=== PATIENT | female | born 1950 | race Caucasian/White ===

== ENCOUNTER 2024-12-26 22:38 | Emergency (ER) | payer MEDICARE, SELFPAY ==
--- OUTSIDE RECORDS SUMMARY | 2024-12-26 22:40 | XMS_ITS | Clinical Summary ---
Author Organization [facility] Address [address] [place] [id number] Care Team Providers Care Bicycle Courier Name Role Phone Shira Holden MD Primary Care Provide r Thom Lagos MD Unavailable [phone] Trish Naranjo PharmD Unavailable [phone] Allergies Active Allergy Reactions Criticality Noted Date Comments Nickel Rash 01/08/2020 Medications bismuth subsalicylate 262 mg chewable (Pepto-BismoL) 262 mg chewable tabletIndications :Loose stools 1-2 tablets daily as needed for loose stools 0 12/18/19 22 Active amLODIPine (NORVASC) 5 mg tabletIndications :HTN (hypertension) TAKE 1 TABLET BY MOUTH ONCE DAILY 90 Tablet 3 05/08/20 24 Active calcium carbonate (Calcium 500) 500 mg calcium (1,250 mg) tabletIndications :Health care maintenance Take 1 Tablet (500 mg) by mouth once daily with a meal. 06/06/20 24 Active antiox.mv no.[id number]- ayaan (I-Caps) 280-10-2 mg capIndications:He alth care maintenance Take 1 Capsule by mouth two times daily. Or as directed on the bottle. 06/06/20 24 Active cholecalciferol (Vitamin D) 1,000 unit capsuleIndication s:Health care maintenance Take 1 Capsule (1,000 units) by mouth once daily. 06/06/20 24 Active loperamide (IMODIUM) 2 mg capsuleIndication s:Diarrhea, unspecified type Take 4mg by mouth with 1st loose stool, then 2mg with each subsequent loose stool. Max 16 mg in 24 hrs 06/06/20 24 Active atenoloL (TENORMIN) 25 mg tabletIndications :HTN (hypertension) Take 1 Tablet (25 mg) by mouth two times daily. 180 Tablet 3 06/12/20 24 Active fexofenadine (SALVADOR) 180 mg tabletIndications :Seasonal allergic rhinitis, unspecified trigger Take 180 mg by mouth once daily. Do not crush or chew. 90 Tablet 3 06/12/20 24 Active fluticasone propion-salmetero L (ADVAIR) 250-50 mcg/Dose diskus inhalerIndication s:Chronic cough USE 1 INHALATION BY MOUTH TWICE DAILY 60 Each 11 07/04/20 24 Active thyroid (Bandera Thyroid) 90 mg tabletIndications :Hypothyroidism, unspecified type TAKE 1 TABLET (90 MG) BY MOUTH ONCE DAILY. 90 Tablet 2 08/18/19 25 Active amoxicillin-clavu lanate 875-125 mg tabletIndications :Acute pansinusitis, recurrence not specified Take 1 Tablet by mouth two times daily with meals. 20 Tablet 11/16/19 25 Active fluticasone (50 mcg per actuation) nasal solution (FLONASE)Indicati ons:Other chronic sinusitis Inhale 2 Sprays in both nostrils once daily. 16 g 3 11/16/19 25 Active apixaban (Eliquis) 5 mg tabletIndications :Atrial fibrillation, unspecified type (HC) TAKE 1 TABLET BY MOUTH TWICE DAILY 200 Tablet 3 11/27/19 25 Active predniSONE 10 mg tabletIndications :Chronic maxillary sinusitis 30mg by mouth daily for 6 days, then 20mg by mouth daily for 6 days, then 10mg by mouth daily for 2 days 32 Tablet 11/29/19 25 Active doxycycline 100 mg tabletIndications :Recurrent sinus infections,Chroni c maxillary sinusitis Take 1 Tablet (100 mg) by mouth two times daily before meals. 28 Tablet 11/29/19 25 Active olopatadine 0.1 % ophthalmic solutionIndicatio ns:Allergic conjunctivitis, unspecified laterality Place 1 Drop into both eyes two times daily. 15 mL 12/19/19 25 Active fluconazole 100 mg tabletIndications :Laryngitis Take 1 Tablet (100 mg) by mouth once daily for 14 days. 14 Tablet 12/21/19 25 025 Active olopatadine (PATANOL) 0.1 % ophthalmic solutionIndicatio ns:Allergic conjunctivitis, unspecified laterality INSTILL 1 DROP IN BOTH EYES TWICE DAILY 15 mL 12/08/19 24 025 Discontin ued(Reord er (E-cancel not sent)) Active Problems Problem Noted Date Diagnosed Date Paroxysmal SVT (supraventricular tachycardia) Vestibular neuritis 07/28/2021 Family history of colon cancer 12/16/2017 Overview (04/12/2023): Colonoscopy 11/2017 long colon, repeat in 5 years with an adult scope Colonoscopy 04/2023 long colon, repeat in 5 years with an adult scope, colowrap H/O total hip arthroplasty, right 11/24/2017 History of total right knee replacement 03/01/20 17 HTN (hypertension) 06/12/2015 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 10/21/2008 Microscopic colitis 07/09/2008 Overview (08/16/2012): Colonoscopy 08/2012 lymphocytic colitis repeat in 5 years 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 Diarrhea 02/08/2008 Postmenopausal atrophic vaginitis 12/06/2006 Unspecified hypothyroidism 11/22/2006 Resolved Problems Problem Noted Date Diagnosed Date Resolved Date Anticoagulation monitoring, special range 02/18/2017 03/16/2017 S/P right knee surgery 02/18/201711/24 Adhesive capsulitis of shoulder 10/21/2008 11/24/2017 Ovarian cyst 05/17/2008 11/24/2017 Unspecified essential hypertension 11/22/2006 06/12/2015 Encounters Date Type Department Care Team Description 12/20/2024 10:00 AM CDT Office Visit [address] [place] [phone] Pedrito Guerrero-Bg Block MD Consult (Chronic maxillary sinusitis /Recurrent sinus infections /Vocal cord edema ) 12/20/2024 Travel 12/15/2024 Travel 11/28/2024 11:00 AM CDT [address] [place] [address] Lisa Dumont PA Consult (Sinus concerns and laryngitis) 11/27/2024 Travel 11/23/2024 9:30 AM CDT Office Visit [facility] [address] [place] [address] Anna Hodges MD Follow Up 11/23/2024 Travel 11/21/2024 Refill [facility] [address] [place] [address] Shira Holden MD Refill Request (Eliquis) 11/21/2024 Travel 11/16/2024 10:00 AM CDT Orders Only [facility] [address] [place] [address] 1 scan: (1-Ord) ECHO TTE COMPLETE WO CONTRAST ([id number]) 11/15/2024 3:30 PM CDT Office Visit [facility] [address] [place] [address] Shira Holden MD Sinus Problem (CT done. Does not feel bad. Throat sore and scratchy ) 11/15/2024 2:30 PM CDT Ancillary Procedure [facility] [address] [place] [address] 11/15/2024 Travel 11/05/2024 E-Visit [address] [address] Shira Holden MD Sinuses again? from Last 3 Months Immunizations Immunization Administration Dates Next Due AMB Influenza, IIV3 (Age >=3 years)(Flu Clinic Only) 06/17/2011,05/06/2009,05/24/2008 Amb Influenza, Inactivated A IIV4 (Age 65+ Years) Preserv Free 05/21/2020 COVID-19 vaccine (Pfizer-Bio NTech 30mcg/0.3mL) 12YO+ SERGEY-SUCROSE PF, MDV 12/17/2021 COVID-19 vaccine (Pfizer-Bio NTech 30mcg/0.3mL) PF, MDV 11/08/2020,10/18/2020 DT (Age < 7 years) 10/19/1999 Influenza A (H1N1), Inactivated 08/18/2009 Influenza A (H1N1), Inactiva ambrocio (Age >=3 Years) 08/18/2009 Influenza, High-dose Quadriv alent Inactivated 05/10/2023,05/06/2022 Influenza, IIV3 (Age 6-35 mos) 06/17/2011 Influenza, IIV3 (Age >=3 years) 06/14/20 13,07/04/2012,06/02/2010,06/13,06/11/2006,06/16/2005,05/14/2004 Influenza, IIV4 05/25/2016, 5,07/11/2014,08/18 Influenza, Inactivated AIIV4 (Age 65+ Years) Preserv Free 06/02/2021 Influenza, Inactivated IIV3 (Age 65+ Years) Preserv Free 04/27/2024,06/13/2019,06/02/2018,07/15 Pneumococcal Poly,23-Valent (Pneumovax) 07/15/2017,06/25/2003 Pneumococcal conj 13-Valent (Prevnar 13) 05/25/2016 RSV, Recombinant ADJ Reconst ituted (Arexvy 120MCG/0.5mL) 09/08/2023 Tdap 04/05/2019,05/29/2009 Tuberculin (PPD) 12/08/2012 Zoster (Shingrix-RZV, recombinant) 02/27/2019, Zoster (Zostavax-ZVL, live) 08/08/2012 Family History Medical History Relation Name Comments Cancer-prostate Father Yan Suazo Thyroid Disease Father Yan Suazo Cancer-breast Maternal Aunt 1 Hypertension Maternal Grandmother Cancer-colon Mother Angela Suazo age 75 Hypertension Mother Angela Suazo Cancer Paternal Grandmother Pancrea tic Cancer Cancer-ovarian No Family History Relation Name Status Comments Brother Wei Suazo Alive Daughter Bryanna Costa Alive Father Yan Suazo Alive Maternal Aunt 1 Maternal Aunt 2 Maternal Grandfather (Age 83) Maternal Grandmother (Age 86) Mother Angela Suazo Alive Other Paternal Grandfather (Age 85) Paternal Grandmother (Age 65) Sister 1 Naye Gardiner Alive Sister 2 Holli Franklin Alive Sister 3 Portia Suazo Alive Son Navi Costa Alive Social History Tobacco Use Types Packs/Day Years Used Date Smoking Tobacco: Never Smokeless Tobacco: Never Tobacco Cessation:Counseling Given: Yes Alcohol Use Standard Drinks/Week Comments Yes 4 (1 standard drink = 0.6 oz pur e alcohol) 4-6 drinks per week PHQ-2 Answer Date Recorded PHQ-2 TOTAL SCORE 0 06/12/2024 Social Connections Answer Date Recorded Do you often feel lonely or isolated from those around you? 0 06/12/2024 Financial Resource Strain Answer Date R ecorded Difficulty of Paying Living Expenses 3 06/12/2024 Difficulty of Paying Living Expenses Not on file 06/12/2024 Food Insecurity Answer Date Recorded Do you worry your food will run out before you are able to buy more? 1 06/12/2024 Transportation Needs Answer Date Record ed Does lack of transportation keep you from medica l appointments? 1 06/12/2024 Does lack of transportation keep you from work, meetings or getting things that you need? 1 06/12/2024 Housing Stability Answer Date Recorded What is your housing situation today? 1 06/12/2024 Utilities Answer Date Recorded Do you have trouble paying f or utilities (for example, heat, electricity, water, phone)? 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 Not on file Not on file Not on file Obstetrics History Para Term AB IAB SAB Ectopic Multiple Livin g Live Births 2 2 2 2 Date Outcome GA Total Labor Labor/2nd/3rd Weight Sex Type Anes PTL Perlita A1 A5 Name Clin Term Term Last Filed Vital Signs Vital Sign Reading Time Taken Comments Blood Pressure 158/86 11/23/2024 9:27 AM CDT Pulse 69 11/23/2024 9:27 AM CDT Temperature 36.8 C (98.3 F) 11/03/2021 9:13 AM CDT Respiratory Rate 14 04/12/2023 11:0 0 AM CDT Oxygen Saturation 99% 11/23/2024 9:27 AM CDT Inhaled Oxygen Concentration - - Weight 76.1 kg (167 lb 11.2 oz) 11/23/2024 9:27 AM CDT Height 163.2 cm (5' 4.25) 06/12/2024 1:17 PM CS T Body Mass Index 28.56 06/12/2024 1:17 PM SPOT FACER Plan of Treatment Health Maintenance Due Date Last Done Comments COVID-19 vaccine series ( season) 2024 04/27/2024, 05/10/2023, 04/30/2022, Additional history exists BMI (ht and wt on same day) for age 18+ 06/12/2025 06/12/2024, 06/07/2023, 06/03/2022, Additional history exists Depression screening for age 12+ 06/12/2025 06/12/2024, 06/07/2023, 06/03/2022, Additional history exists Medicare Wellness for age 65+ 06/13/2025 06/12/2024, 06/07/2023, 06/03/2022, Additional history exists Mammogram for age 45-75 07/16/2025 07/16/20 24, 07/13/2023, 07/01/2022, Additional history exists Colonoscopy through age 75 04/12/202804/12, 04/12/2023, 12/16/2017, Additional history exists Tetanus booster 04/05/2029 04/05/2019, 05/29/2009 Lipids for age 45-75 06/12/2029 06/12/2024, 06/07/2023, 05/31/2022, Additional history exists Pneumococcal series for age 50+ Completed 07/15/2017, 05/25/2016, 06/25/2003 DEXA/DXA scan for age 65+ Completed 02/16/2018 Hepatitis C screening for age 18-79 Completed 06/02/2018, 07/15/2017 Zoster (shingles) series for age 50+ Completed 02/27/2019, 12/15/2018, 08/08/2012 Tdap Completed 04/05/2019, 05/29/2009 RSV vaccine for adults or Completed 09/08/2023 Influenza Vaccine Completed 04/27/2024, , 05/21/2020, Additional history exists Hepatitis B series for 19+ Aged Out N o longer eligible based on patient's age to complete this topic Goals Goal Patient Goal Type Associated Problems Recent Progress Patient-Stated? Author BLOOD PRESSURE - Maintains BP less than 140/90 Blood Pressure No Elizabeth Barber LPN Procedures Procedure Name Priority Date/Time Associated Diagnosis Comments ECHO TTE COMPLETE WO CONTRAST Routine 11/16/2024 11:34 AM CDT Atrial fibrillation, unspecified type (HC) CT SINUS WO STAT 11/15/2024 2:34 PM CDT Other chronic sinusitis XR MAMMO JOSEY BILAT SCREEN Routine 07/16/2024 1:09 PM SPOT FACER Visit for screening mammogram LIPID PANEL W REFLEX MEASURED LDL Routine 06/12/2024 2:32 PM SPOT FACER Lipid screening COLONOSCOPY 04/12/2023 10:07 AM CDT ANTI HCV Routine 06/02/2018 10:28 AM CDT Encounter for hepatitis C screening test for low risk patient XR DXA BONE DENSITY 2 SITES AXIAL Routine 02/16/2018 9:48 AM CDT Asymptomatic postmenopausal state from Last 3 Months or Most Recently Relevant to Health Maintenance Results * ECHO TTE COMPLETE WO CONTRAST (11/16/2024 11:34 AM CDT) AORTIC VALVE MEAN PG 6 mmHg EJECTION FRACTION 66 % LVEDD 3.9 cm EJECTION FRACTION 60 - 65% Anatomical Region Laterality Modality Ultrasound 11/16/2024 10:2 9 AM CDT Narrative 11/16/2024 11:57 AM CDT ECHOCARDIOGRAM ROSEANN PEÑA : 1950 74 years Study Date: 11/16/2024 10:29:38 AM Gender: F BP: 149/82 mmHg Height: 165.00 cm BSA: 1.82 m Weight: 75.00 kg Tech: ROBERTA Referring MD: ANNA HODGES Site: [facility] Reading Location: Mobile-OP Patient Location: Outpatient. Procedure: 2D, Color Doppler and Spectral Doppler. Indication for study: Atrial fibrillation, unspecified type (HC Cardiac Rhythm: Regular.Study quality: Good. Imaging limitations: This study was subject to imaging limitations due to Dextrocardia. Final Impressions: 1. Normal LV size, mildly increased wall thickness, normal global systolic function with an estimated EF of 60 - 65%. 2. Right ventricular cavity size is normal, global systolic RV function is normal. 3. Mildly enlarged left atrium. 4. The aortic valve is normal and trileaflet, no stenosis and mild regurgitation. 5. The mitral valve is sclerotic, mild mitral regurgitation. 6. Tricuspid valve is normal, trace tricuspid regurgitation. 7. Color Doppler suggests a possible PFO. 8. Dilated sinus of Valsalva, diameter of 4.1 cm (upper limit of normal for age, sex, and BSA is 3.7 cm), Height Index 2.48 cm/m. 9. Small pericardial effusion. Chamber Sizes and Function Normal left ventricular size, mildly increased wall thickness, normal global systolic function with an estimated EF of 60 - 65%. No resting regional wall motion abnormality visualized. Left atrial size is mildly enlarged. Left atrial pressure is normal. Right ventricular cavity size is normal, global systolic RV function is normal. RV wall thickness is normal. The right atrium is mildly enlarged. Right atrial volume index is 29 ml/m . Right atrial area is 18 cm . The pulmonary artery is of normal size and origin. The sinus of Valsalva is dilated. The ascending aorta is normal sized. Valves, RV Pressures and Diastolic Function The aortic valve is normal in structure and trileaflet, no stenosis and mild regurgitation. The mitral valve is sclerotic, mild mitral regurgitation. Spectral Doppler shows Grade 1 pattern of LV diastolic filling. The tricuspid valve is normal in structure, trace tricuspid regurgitation. The pulmonic valve is normal. No pulmonary regurgitation. Masses, Effusion, Shunts There is small pericardial effusion. The inferior vena cava is normal sized, respiratory size variation greater than 50%. Color flow Doppler imaging suggests a possible PFO. MEASUREMENTS AND CALCULATIONS 2-D Measurements and LV Function: LVID (d) 3.9 cm LV FS% (2D) 43 % LVID (s) 2.2 cm LVOT diameter 2.2 cm IVS (d) 1.2 cm HR 65 bpm LVPW (d) 1.2 cm LA Vol index 39 ml/m2 Ao Sinus 4.1 cm RA Vol index 29 ml/m2 Ao Sinus ULN 3.7 cm RA area 18 cm Asc Ao 3.7 cm RV Basal Diam 3.9 cm Asc Ao ULN 4.0 cm RV Mid Diam 2.7 cm LA 3.5 cm Diastology: Mitral Tissue Doppler E Peak 0.7 m/s e', Septum 0.04 m/s A Peak 1.0 m/s e', Lateral 0.05 m/s E/A 0.7 E/e' Average 15.61 DT 196 msec Aortic Valve: Vmax 1.6 m/s DAVID (V) 2.56 cm VTI 0.31 m DAVID (I) 2.88 cm LVOT V max 1.1 m/s Max PG 11 mmHg LVOT VTI 0.23 m Mean PG 6 mmHg SV 89 ml Dim Index 0.74 SV index 49 ml/m CO 5.8 l/min AV Ejection Time 0.28 sec CI 3.2 l/min/m AV Flow Rate 319 ml/s Mitral Valve: MVA 3.9 cm MV P 1/2 57 msec Tricuspid Valve and estimated PA pressures: TAPSE 1.9 cm . This study was interpreted by an [facility] accredited facility. Final Procedure Note Jennifer Richards, [facility] - 11/16/2024 ECHOCARDIOGRAM ROSEANN PEÑA : 1950 74 years Study Date: 11/16/2024 10:29:38 AM Gender: F BP: 149/82 mmHg Height: 165.00 cm BSA: 1.82 m Weight: 75.00 kg Tech: ROBERTA Referring MD: ANNA HODGES Site: [facility] Reading Location: Mobile-OP Patient Location: Outpatient. Procedure: 2D, Color Doppler and Spectral Doppler. Indication for study: Atrial fibrillation, unspecified type (HC Cardiac Rhythm: Regular.Study quality: Good. Imaging limitations: This study was subject to imaging limitations due toDextrocardia. Final Impressions: 1. Normal LV size, mildly increased wall thickness, normal globalsystolic function with an estimated EF of 60 - 65%. 2. Right ventricular cavity size is normal, global systolic RV functionis normal. 3. Mildly enlarged left atrium. 4. The aortic valve is normal and trileaflet, no stenosis and mildregurgitation. 5. The mitral valve is sclerotic, mild mitral regurgitation. 6. Tricuspid valve is normal, trace tricuspid regurgitation. 7. Color Doppler suggests a possible PFO. 8. Dilated sinus of Valsalva, diameter of 4.1 cm (upper limit of normalfor age, sex, and BSA is 3.7 cm), Height Index 2.48 cm/m. 9. Small pericardial effusion. Chamber Sizes and Function Normal left ventricular size, mildly increased wall thickness, normalglobal systolic function with an estimated EF of 60 - 65%. No restingregional wall motion abnormality visualized. Left atrial size is mildlyenlarged. Left atrial pressure is normal. Right ventricular cavity size isnormal, global systolic RV function is normal. RV wall thickness isnormal. The right atrium is mildly enlarged. Right atrial volume index is29 ml/m . Right atrial area is 18 cm . The pulmonary artery is of normalsize and origin. The sinus of Valsalva is dilated. The ascending aorta isnormal sized. Valves, RV Pressures and Diastolic Function The aortic valve is normal in structure and trileaflet, no stenosis andmild regurgitation. The mitral valve is sclerotic, mild mitralregurgitation. Spectral Doppler shows Grade 1 pattern of LV diastolicfilling. The tricuspid valve is normal in structure, trace tricuspidregurgitation. The pulmonic valve is normal. No pulmonary regurgitation. Masses, Effusion, Shunts There is small pericardial effusion. The inferior vena cava is normalsized, respiratory size variation greater than 50%. Color flow Dopplerimaging suggests a possible PFO. MEASUREMENTS AND CALCULATIONS 2-D Measurements and LV Function: LVID (d) 3.9 cm LV FS% (2D) 43 % LVID (s) 2.2 cm LVOT diameter 2.2 cm IVS (d) 1.2 cm HR 65 bpm LVPW (d) 1.2 cm LA Vol index 39 ml/m2 Ao Sinus 4.1 cm RA Vol index 29 ml/m2 Ao Sinus ULN 3.7 cm RA area 18 cm Asc Ao 3.7 cm RV Basal Diam 3.9 cm Asc Ao ULN 4.0 cm RV Mid Diam 2.7 cm LA 3.5 cm Diastology: Mitral Tissue Doppler E Peak 0.7 m/s e', Septum 0.04 m/s A Peak 1.0 m/s e', Lateral 0.05 m/s E/A 0.7 E/e' Average 15.61 DT 196 msec Aortic Valve: Vmax 1.6 m/s DAVID (V) 2.56 cm VTI 0.31 m DAVID (I) 2.88 cm LVOT V max 1.1 m/s Max PG 11 mmHg LVOT VTI 0.23 m Mean PG 6 mmHg SV 89 ml Dim Index 0.74 SV index 49 ml/m CO 5.8 l/min AV Ejection Time 0.28 sec CI 3.2 l/min/m AV Flow Rate 319 ml/s Mitral Valve: MVA 3.9 cm MV P 1/2 57 msec Tricuspid Valve and estimated PA pressures: TAPSE 1.9 cm . This study was interpreted by an [facility] accredited facility. Final [facility] Eldon Hodges MD ECHO ORD Final Result * CT SINUS WO (11/15/2024 2:34 PM CDT) Anatomical Region Laterality Modality SINUS Computed Tomogra phy 11/15/2024 2:43 PM CDT Addenda Addendum by Thom Tse MD on 11/18/2024 9:11 AM CDT Indication: Chronic sinus disease. Technique: Routine sinus CT protocol without contrast Comparison: None Findings: Paranasal sinuses: Near complete opacification of both maxillary sinuses the hypoplastic frontal and hypoplastic sphenoid sinuses. Moderate multifocal mucosal thickening involving most ethmoid air cells. OMU and SER: Patent. Nasal cavity: No nasal mass lesions. Mild deviation nasal septum to the right. No septal spur. Bones: No facial fractures, deformities or bony lesions. 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 Orbits: The globes are intact. No intra orbital abnormalities. Infratemporal fossa: Normal. Soft tissues: Normal. Intracranial contents: Normal visualized intracranial contents. Impression: 1. Near complete opacification of both maxillary sinuses in the hypoplastic frontal and hypoplastic sphenoid sinuses. Moderate scattered mucosal thickening or obstruction of the ethmoid air cells. 2. No OMU, SER or nasal obstruction. 3. Small fat containing bilateral inguinal hernias with a trace of fluid in the larger left sac. Please note that all CT scans at this facility use dose modulation, iterative reconstruction, and/or weight-based dosing when appropriate to reduce radiation dose to as low as reasonably achievable. Dictated by Thom Tse MD @ 11/15/2024 2:43:22 PM ----- ADDENDUM ----- IMPRESSION: #3 Impression is a cut and paste body make up artist error. 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 Dictated by Thom Tse MD @ Nov 18 2024 9:09AM (Electronically Signed) Narrative 11/15/2024 2:43 PM CDT For Patients: As a result of the Cures Act, medical imaging exams and procedure reports are released immediately into your electronic medical record. You may view this report before your referring provider. If you have questions, please contact your health care provider. Indication: Chronic sinus disease. Technique: Routine sinus CT protocol without contrast Comparison: None Findings: Paranasal sinuses: Near complete opacification of both maxillary sinuses the hypoplastic frontal and hypoplastic sphenoid sinuses. Moderate multifocal mucosal thickening involving most ethmoid air cells. OMU and SER: Patent. Nasal cavity: No nasal mass lesions. Mild deviation nasal septum to the right. No septal spur. Bones: No facial fractures, deformities or bony lesions. 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 Orbits: The globes are intact. No intra orbital abnormalities. Infratemporal fossa: Normal. Soft tissues: Normal. Intracranial contents: Normal visualized intracranial contents. Impression: 1. Near complete opacification of both maxillary sinuses in the hypoplastic frontal and hypoplastic sphenoid sinuses. Moderate scattered mucosal thickening or obstruction of the ethmoid air cells. 2. No OMU, SER or nasal obstruction. 3. Small fat containing bilateral inguinal hernias with a trace of fluid in the larger left sac. Please note that all CT scans at this facility use dose modulation, iterative reconstruction, and/or weight-based dosing when appropriate to reduce radiation dose to as low as reasonably achievable. Dictated by Thom Tse MD @ 11/15/2024 2:43:22 PM (Electronically Signed) Procedure Note Thom Tse MD - 11/15/2024 For Patients: As a result of the Cures Act, medical imagingexams and procedure reports are released immediately into your electronicmedical record. You may view this report before your referring provider.If you have questions, please contact your health care provider. Indication: Chronic sinus disease. Technique: Routine sinus CT protocol without contrast Comparison: None Findings: Paranasal sinuses: Near complete opacification of both maxillary sinuses the hypoplasticfrontal and hypoplastic sphenoid sinuses. Moderate multifocal mucosalthickening involving most ethmoid air cells. OMU and SER: Patent. Nasal cavity: No nasal mass lesions. Mild deviation nasal septum to theright. No septal spur. Bones: No facial fractures, deformities or bony lesions. 3.5 millimeterright middle ethmoid sinus osteoma. Orbits: The globes are intact. No intra orbital abnormalities. Infratemporal fossa: Normal. Soft tissues: Normal. Intracranial contents: Normal visualized intracranial contents. Impression: 1. Near complete opacification of both maxillary sinuses in thehypoplastic frontal and hypoplastic sphenoid sinuses. Moderate scatteredmucosal thickening or obstruction of the ethmoid air cells. 2. No OMU, SER or nasal obstruction. 3. Small fat containing bilateral inguinal hernias with a trace of fluidin the larger left sac. Please note that all CT scans at this facility use dose modulation,iterative reconstruction, and/or weight-based dosing when appropriate toreduce radiation dose to as low as reasonably achievable. Dictated by Thom Tse MD @ 11/15/2024 2:43:22 PM (Electronically Signed) us Shira Holden MD CT Edite d Result - Final * XR MAMMO JOSEY BILAT SCREEN (07/16/2024 1:09 PM SPOT FACER) Anatomical Region Laterality Modality BREASTS, Breast Left, Breast Right Bilateral Mammography Impressions 07/16/2024 2:28 PM SPOT FACER There is no radiographic evidence for malignancy. Recommend annual mammograms. MAMMOGRAM ASSESSMENT: ACR 1 Negative PATIENTS: You will also receive a letter with your examination results in an easy to read format. If you have questions about your results, please contact your referring provider. Narrative 07/16/2024 2:28 PM SPOT FACER For Patients: As a result of the Century Cures Act, medical imaging exams and procedure reports are released immediately into your electronic medical record. You may view this report before your referring provider. If you have questions, please contact your health care provider. XR MAMMO JOSEY BILAT SCREEN [[id number]] CLINICAL HISTORY: This is an asymptomatic 74 y.o. patient. INDICATION FOR EXAM: Mammogram Screening. TECHNIQUE: CC & MLO views were obtained. This study was evaluated with the assistance of Computer-Aided Detection. Breast Tomosynthesis was used in interpretation. COMPARISON FILM: Yes 07/13/23 [facility] 07/01/22 [facility] FINDINGS: There are scattered areas of fibroglandular density. There are no dominant masses, suspicious micro calcifications or areas of architectural distortion. us Shira Holden MD MAMMO Final Result * (ABNORMAL) LIPID PANEL W REFLEX MEASURED LDL (06/12/2024 2:32 PM SPOT FACER) CHOLESTEROL, TOTAL 179 <200 mg/dL [facility] HDL CHOLESTEROL 61 > OR = 50 mg/dL [facility] TRIGLYCERIDES 173(H) <150 mg/dL [facility] LDL-CHOLESTEROL 91 mg/dL (calc) [facility] Comment: Reference range: <100 Desirable range <100 mg/dL for primary prevention; <70 mg/dL for patients with CHD or diabetic patients with > or = 2 CHD risk factors. LDL-C is now calculated using the Jose Antonio calculation, which is a validated novel method providing better accuracy than the Friedewald equation in the estimation of LDL-C. Reece SS et al. JONATHAN. 2013;310(19): 6264-7578 (http://education.DataOceans/faq/BTE757) CHOL/HDLC RATIO 2.9 <5.0 (calc) [facility] NON HDL CHOLESTEROL 118 <130 mg/dL (calc) [facility] Comment: For patients with diabetes plus 1 major ASCVD risk factor, treating to a non-HDL-C goal of <100 mg/dL (LDL-C of <70 mg/dL) is considered a therapeutic option. Blood BLOOD SPECIMEN / Unknown 06/12/2024 2:32 PM SPOT FACER 06/12/2024 2:32 PM SPOT FACER us Shira Holden MD CHEMISTRY Final Result [facility] [address] [place] [address], [facility] [address] [place] [address] * COLONOSCOPY (04/12/2023 10:07 AM CDT) 04/12/2023 10:0 7 AM CDT Narrative Transcriptions Reece Gleason MD - 04/12/2023 10:48 AM CDT Patient Name: Roseann Peña Procedure Date: 04/12/2023 Gender: Female Date of : 1950 Admit Type: Outpatient Procedure: Colonoscopy Proceduralist: Reece Gleasno MD , Yvrose Mckay RN (Nurse), Pauline Moerno (Nurse) Indications/Pre-Op Diagnosis: Screening in patient at increased risk:Family history of 1st-degree relative withcolorectal cancer before age 60 years, Lastcolonoscopy: November 2017 Medications: Fentanyl 100 micrograms IV, Midazolam 3 mgIV, The level of sedation administered wasmoderate Procedure Description: The patient had risks, benefits and alternatives explained to andgave informed consent. The patient had a stable cardiopulmonary status and judged an adequate candidate for conscious sedation. The endoscope [id number] was passed through the anus andadvanced to the cecum, identified by appendiceal orifice and ileocecal valve.The colonoscopy was performed without difficulty. The patient toleratedthe procedure well. The quality of the bowel preparation was good. The ileocecal valve, appendiceal orifice, and rectum were photographed. Complications: No immediate complications. Estimated Blood Loss & Specimen: Estimated blood loss: none. Specimen collected - None Findings: The perianal and digital rectal examinations were normal. The colon (entire examined portion) was significantly redundant. The exam was otherwise without abnormality. Impressions/Post-Op Diagnosis: - Redundant colon. - The examination was otherwise normal. - No specimens collected. Recommendation: - Patient has a contact number available for emergencies. The signsand symptoms of potential delayed complications were discussed with the patient. Return to normal activities tomorrow. Written discharge instructions were provided to the patient. - Resume previous diet. - Continue present medications. - Repeat colonoscopy in 5 years for screening purposes. Use acolowrap if possible. Moderate Sedation: A time out was performed before the procedure. Moderate (conscious) sedation was administered by the endoscopy nurse and supervised bythe endoscopist. The following parameters were monitored: oxygensaturation, heart rate, blood pressure, EKG, CO2, respiratory rate, adequacy of pulmonary ventilation and reponse to care. Please refer to the patient's medical record flowsheets and nursing notes for moderate sedation details. Total physician intraservice time was 21 minutes. Reece Gleason MD 04/12/2023 10:48:41 AM This report has been signed electronically. Note Initiated On: 04/12/2023 10:07 AM Procedure Code(s): --- Professional --- 74836, Colonoscopy, flexible; diagnostic, including collection of specimen(s) bybrushing or washing, when performed (separateprocedure) Diagnosis Code(s): --- Professional --- Z80.0, Family history of malignant neoplasmof digestive organs Q43.8, Other specified congenitalmalformations of intestine CPT copyright 2021 [employer]. All rights reserved. The codes documented in this report are preliminary and upon application systems administrator reviewmay be revised to meet current compliance requirements. Scope In: 10:23:01 AM Scope Withdrawal Time 0 hours 6 minutes 12 seconds Scope Out: 10:42:00 AM Reece Gleason MD PROCEDURE ORD Final Res ult * ANTI HCV (06/02/2018 10:28 AM CDT) HEPATITIS C ANTIBODY Non-React marvin Non-React marvin 06/02/2018 4:48 PM CDT [facility] Comment:Antibodies to HCV no t detected; does not exclude the possibility of exposure to HCV. Blood BLOOD SPECIMEN / Unknown Butterfly / Unknown 06/02/2018 10:28 AM CDT 06/02/2018 10:28 AM CDT Shira Holden MD SEND OUTS Final Result [facility] [address] [place] [address], * (ABNORMAL) XR DXA BONE DENSITY 2 SITES AXIAL (02/16/2018 9:48 AM CDT) Anatomical Region Laterality Modality Spine, HIPS, HIPL, HIPR Other Narrative 02/21/2018 8:00 AM CDT Please see scanned document for results of this study. Shira Holden MD DEXA Final Result from Last 3 Months or Most Recently Relevant to Health Maintenance Insurance MEDICARE PART A HB ONLY [facility] Care Teams Bicycle Courier Relationship Specialty Start Date End Date Shira Holden MD [address] [place] [address] PCP - General 02/02/06 Thom Lagos MD [address] [place] [address] Orthopedics Surgery - Orthopedics 12/20/13 Trish Naranjo PharmD [address] [place] [address] [place] [address] Pharmacist Medication Management Pharmacology 06/06/24 06/06/27
[2024-12-26 22:47] VITALS: BP 175/96; PULSE 82; RESP 16; TEMP 36.8; O2SAT 96; BMI 27.8
--- NOTE | 2024-12-26 23:12 | ED.GENADULT ---
HPI - General Adult General Chief complaint: Lower Extremity Swelling Stated complaint: swollen ankle L side Time Seen by Provider: 12/26/24 23:03 History of Present Illness HPI narrative: Arrives with atraumatic swelling to her left ankle that started yesterday. States the back of her ankle is painful as well. Alert and oriented, ABCs intact. 74-year-old woman presenting to the emergency department with concern of swelling about her left ankle beginning yesterday. It is sore behind her ankle as well. No significant injury and no marked pain to suggest bony abnormality perhaps. Does have a history of hardware in her left ankle but does not typically swell. Small purple spot papule superior and medial to the medial malleolus that she thinks may have been from a bite sustained yesterday maybe an insect. Iced and elevated last night Apparently was recommended to be seen with I believe concern of DVT. She is also planning a flight shortly. Related Data Home Medications ?Medication ?Instructions ?Recorded ?Confirmed amlodipine 5 mg tablet 5 mg PO DAILY 12/26/24 12/26/24 apixaban 5 mg tablet (Eliquis) 5 mg PO BID 12/26/24 12/26/24 atenolol 25 mg tablet 25 mg PO BID 12/26/24 12/26/24 fluconazole 100 mg tablet 100 mg PO DAILY 12/26/24 12/26/24 thyroid (pork) 90 mg tablet 90 mg PO DAILY 12/26/24 12/26/24 ([place] Thyroid) Previous Rx's ?Medication ?Instructions ?Recorded cephalexin 500 mg capsule 2,000 mg (4 x 500 mg) PO ONCE #4 05/09/23 caps Allergies Allergy/AdvReac Type Severity Reaction Status Date / Time nickel AdvReac Rash Verified 12/26/24 22:44 Review of Systems Status of ROS: Reports: 6 or more systems reviewed and unremarkable except as noted in History and below [facility] Medical History Atrial fibrillation ?I48.91 - Unspecified atrial fibrillation (ICD-10) Cardiomegaly ?I51.7 - Cardiomegaly (ICD-10) Hypothyroidism ?E03.9 - Hypothyroidism, unspecified (ICD-10) 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) Surgical History History of removal of ovarian cyst (07/15/08) ?Z98.890 - Other specified postprocedural states (ICD-10) ?Z87.42 - Personal history of other diseases of the female genital tract (ICD-10) History of arthroscopy of right knee (01/16/14) ?Z98.890 - Other specified postprocedural states (ICD-10) History of open reduction and internal fixation (ORIF) procedure (03/06/21) ?Z98.890 - Other specified postprocedural states (ICD-10) 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 NAD. Breathing easily. Negative Homans however reliably, reproducibly a little sore about the Achilles without defect. Mild pitting edema about the ankle. Medial malleolar surgical scar. Const: Vital Signs, click to edit/add: Vital Signs - 24 hr 12/26/24 22:47 Temperature 98.3 F Pulse Rate [Pulse Oximeter] 82 Respiratory Rate 16 Blood Pressure [Ri ght Upper Arm] 175/96 H Pulse Oximetry 96 Oxygen Delivery Me thod Room Air Documenting provider has reviewed patient's vital signs: yes Course Vital Signs Vital signs: Initial Vital Signs Temperature 98.3 F 12/26/24 22:47 Temperature Source Temporal Artery Scan 12/26/24 22:47 Pulse Rate 82 12/26/24 22:47 Respiratory Rate 16 12/26/24 22:47 Blood Pressure 175/96 H 12/26/24 22:47 Blood Pressure Mean 122 H 12/26/24 22:47 Pulse Oximetry 96 12/26/24 22:47 Oxygen Delivery Method Room Air 12/26/24 22:47 Vital Signs Temperature 98.3 F 05/28/25 22:47 Pulse Rate 82 12/26/24 22:47 Respiratory Rate 16 12/26/24 22:47 Blood Pressure 175/96 H 12/26/24 22:47 Pulse Oximetry 96 12/26/24 22:47 Oxygen Delivery Method Room Air 12/26/24 22:47 Temperature 98.3 F 12/26/24 22:47 Pulse Rate 82 12/26/24 22:47 Respiratory Rate 16 12/26/24 22:47 Blood Pressure 175/96 H 12/26/24 22:47 Pulse Oximetry 96 12/26/24 22:47 Oxygen Delivery Method Room Air 12/26/24 22:47 Medical Decision Making MDM Narrative Medical decision making narrative: I think this is some incidental swelling possibly related to prior work on her ankle. 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 Ultrasound has already been activated. I think less likely which she have a clot furthermore is already anticoagulated with apixaban in the setting of atrial fibrillation. There does appear to be some irritation about her Achilles. There is a little puffiness about the Achilles on the left more so than the right. Discussed findings of ultrasound with tearer press clipping. No clot evident. Radiology over-read below INDICATION: Leg pain and swelling. TECHNIQUE: Ultrasound venous duplex lower left extremity. Compression venous exam was performed using gorman-scale, color Doppler, and spectral Doppler analysis. COMPARISON: None. FINDINGS: Deep veins: Sonographic imaging demonstrates the left common femoral, deep femoral, superficial femoral, popliteal, posterior tibial and the contralateral right common femoral veins to be fully compressible with normal color Doppler blood flow. Superficial veins: Greater saphenous vein is fully compressible. No popliteal cyst. IMPRESSION: No evidence of DVT in the left lower extremity. Dictated by Rodríguez Holder MD @ 12/27/2024 12:31:14 AM See patient discharge plan for further discussion I think icing and elevating is still a good plan. Might also try compression with these Melo wraps when at rest. See handout on Achilles tendon injury for some exercises you might try. I do not think you have torn your Achilles but there is reliable irritation here to exam. Would be re-evaluated for marked increase in swelling, pain, redness and heat. Always good to have sensible footwear or at least some good insoles. Supporting the heel and instep with an insole like Superfeet or SOLE does take stress off the ankle and Achilles. Medical Records Medical records reviewed: Yes I reviewed the patient's medical records Discharge Plan Discharge Clinical Impression: Ankle edema, Achilles tendon pain Patient Disposition: Home w/ Parent or Adult Condition: Stable Instructions: Swollen Joint (ED) Additional Instructions: I think icing and elevating is still a good plan. Might also try compression with these Melo wraps when at rest. See handout on Achilles tendon injury for some exercises you might try. I do not think you have torn your Achilles but there is reliable irritation here to exam. Would be re-evaluated for marked increase in swelling, pain, redness and heat. Always good to have sensible footwear or at least some good insoles. Supporting the heel and instep with an insole like Superfeet or SOLE does take stress off the ankle and Achilles. Activity Level: No Restrictions Discharge Diet: Regular Prescriptions: No Action atenolol 25 mg tablet 25 mg PO BID amlodipine 5 mg tablet 5 mg PO DAILY thyroid (pork) [[place] Thyroid] 90 mg tablet 90 mg PO DAILY Eliquis 5 mg tablet 5 mg PO BID fluconazole 100 mg tablet 100 mg PO DAILY cephalexin 500 mg capsule 2,000 mg PO ONCE Qty: 4 3RF Rx Instructions: Take 4 capsules (2000mg) 1 hour prior to dental appointment. Follow Up/Referrals: Shira Holden MD [Primary Care Provider, Family Practice] Stand Alone Forms: MyHealth Info Instructions
--- NOTE | 2024-12-26 23:13 | CRLHL7_ITS ---
For Patients: As a result of the Century Cures Act, medical imaging exams and procedure reports are released immediately into your electronic medical record. You may view this report before your referring provider. If you have questions, please contact your health care provider. INDICATION: Leg pain and swelling. TECHNIQUE: Ultrasound venous duplex lower left extremity. Compression venous exam was performed using ogrman-scale, color Doppler, and spectral Doppler analysis. COMPARISON: None. FINDINGS: Deep veins: Sonographic imaging demonstrates the left common femoral, deep femoral, superficial femoral, popliteal, posterior tibial and the contralateral right common femoral veins to be fully compressible with normal color Doppler blood flow. Superficial veins: Greater saphenous vein is fully compressible. No popliteal cyst. IMPRESSION: No evidence of DVT in the left lower extremity. Dictated by Rodríguez Holder MD @ 12/27/2024 12:31:14 AM (Electronically Signed)
== END 2024-12-27 00:24 | disposition home or self-care (01) ==
PROVIDERS: Emergency Provider Family Medicine; PCP Family Medicine
DX: R60.0 Localized edema (principal); M76.62 Achilles tendinitis, left leg
CPT/HCPCS: 93971; 99284

== ENCOUNTER 2025-04-03 10:15 | Outpatient (CLI) | payer MEDICARE, SELFPAY | END 2025-04-03 10:16 | disposition home or self-care (01) | LOC: CT 10:16 | PROVIDERS: PCP Family Medicine; Visit Provider Orthopaedic Surgery Sports Medicine | DX: Z01.818 Encounter for other preprocedural examination (principal); M19.011 Primary osteoarthritis, right shoulder | CPT/HCPCS: 73200 ==

== ENCOUNTER 2025-05-06 06:07 | Day surgery (SDC) | payer MEDICARE, SELFPAY ==
[2025-05-06] VITALS (19 sets, daily range): BP systolic 115–170; BP diastolic 71–101; PULSE 52–84; RESP 16–21; TEMP 36.1–36.4; O2SAT 92–97; BMI 26.0
[2025-05-06] MEDS: SODIUM CHLORIDE 0.9 % (FLUSH) 10 ML SYRINGE IVF ×2 (06:34→14:40)
[2025-05-06] MEDS: LACTATED RINGERS 1000 ML 1,000 ML 100 ML IV ×2 (06:34→08:30)
[2025-05-06] MEDS: ACETAMINOPHEN 500 MG TABLET 1000 MG PO (06:34)
[2025-05-06] MEDS: OXYCODONE (CR) 10 MG TAB.ER.12H PO (06:35)
--- NOTE | 2025-05-06 06:59 | W.PM.H&PU ---
History & Physical Update History & Physical Update H&P Reviewed and patient assessed: No changes noted
[2025-05-06] MEDS: MIDAZOLAM HCL 1 MG/ML inj IVP (07:00)
--- NOTE | 2025-05-06 07:22 | SUR.PREOP ---
TIME?OUT:?0700 PT/RN/MDA?VERIFICATION?OF?SURGICAL?SITE,?PROCEDURE,?AND?CONSENT OBTAINED?PRIOR?TO?INVASIVE?PROCEDURE.
[2025-05-06] MEDS: TRANEXAMIC ACID 100 MG/ML INJ 1000 MG IV (07:38)
--- NOTE | 2025-05-06 08:22 | W.PM.NB ---
Nerve Block Nerve Block Time Seen by Provider: 07:04 Date Seen: 05/06/25 Type of block requested by surgeon for post-operative analgesia: supraclavicular Side: right Time out performed: Yes Verification of patient name: Yes Verification of date of : Yes Site marking: site marked Name of person performing procedure: Jr Continuous monitoring Was continuous monitoring of O2 sat, B/P, surveillance monitor, recorded every 15 minutes?: Yes Procedure Checklist: sterile prep, needles and gloves Ultrasound guided. Images saved: Yes Medications given in 5ml increments after negative aspiration: Ropivicaine %: 0.5 mL: 20 Needle gauge: 22 Precedex (mcg): 25 Patient tolerated procedure well: Yes Block Charges Block Charge (with Pro Fee): Brachial Plexus Use of Ultrasound Machine for Block: Yes- US Guidance/pain block
--- NOTE | 2025-05-06 08:23 | P.ANES_ITS ---
Anesthesia Charges Start Date/Time Anesthesia Start Date: 05/06/25 Anesthesia Start Time: 07:18 Stop Date/Time Anesthesia Stop Date: 05/06/25 Anesthesia Stop Time: 09:57 Summary Extremes of Age - Over 70 or under 1: MDA Coding CPT Codes CPT Codes: ANESTH SHOULDER REPLACEMENT - 27925 ([id number]) P2 - PATIENT W/MILD SYST DISEASE, QK - PARI MUTUEL TICKET CASHIER 2-4 CNCRNT ANES PROC, QX - PROFILE STITCHING MACHINE OPERATOR SVC W/ MD MED DIRECTION Additional Codes: Summary - Extremes of Age - Over 70 or under 1: MDA ([id number])
--- NOTE | 2025-05-06 08:23 | W.ANESCHARGE ---
Anesthesia Charges Start Date/Time Anesthesia Start Date: 05/06/25 Anesthesia Start Time: 07:18 Stop Date/Time Anesthesia Stop Date: 05/06/25 Anesthesia Stop Time: 09:57 Summary Extremes of Age - Over 70 or under 1: MDA Coding CPT Codes CPT Codes: ANESTH SHOULDER REPLACEMENT - 94036 ([id number]) P2 - PATIENT W/MILD SYST DISEASE, QK - LICENSED DIRECT ENTRY MIDWIFE 2-4 CNCRNT ANES PROC, QX - BOTTOM PRECIPITATOR OPERATOR SVC W/ MD MED DIRECTION Additional Codes: Summary - Extremes of Age - Over 70 or under 1: MDA ([id number])
--- NOTE | 2025-05-06 09:19 | P.ORPRC_ITS ---
Procedure Note Date of procedure: 05/06/25 Procedure: PREOPERATIVE DIAGNOSIS: 1. Right shoulder osteoarthrosis, primary, severe POSTOPERATIVE DIAGNOSIS: 1. Right shoulder osteoarthrosis, primary, severe with fair to poor cuff tissue quality 2. Right long head of the biceps tendinopathy and tenosynovitis PROCEDURE: 1. Right reverse shoulder arthroplasty. 2. Right long head of biceps open tenodesis SURGEON: Tello Robb MD. SUBSTATION ELECTRICIAN SUPERVISOR: Rayo Feldman PA-C - Of note, a skilled ssn/ssbn assistant navigator was critical for this case to aid in patient positioning, tissue retraction, limb manipulation/positioning, retraction for glenoid exposure, which was challenging, awareness and protection of critical structures, and closure. ANESTHESIA: General plus supraclavicular block EBL: 200 ml IMPLANTS: DJ0 surgical Altivate humeral stem size 12 small shell, short with P2 porous coating vitamin E neutral poly small socket insert RSP glenoid base plate P2 porous coating with 4 separate 3.5 mm perimeter locking screws 32 neutral glenosphere with retaining screw COMPLICATIONS: None evident INDICATIONS: The patient is a pleasant 74-year-old female who has experienced severe right shoulder pain and difficulty with use. Workup included imaging which revealed severe osteoarthrosis along with concern for rotator cuff quality. Physical exam was consistent with associated pain. Given the deformity, the dysfunction, and the pain, and failure of nonoperative management, recommendation was made for surgery. DESCRIPTION OF PROCEDURE: Following a thorough discussion of risks, benefits, and alternatives, consent was obtained and the left shoulder was marked. The patient was brought to the operating room and placed supine on the operating table. Induction of anesthesia was undertaken. 1 g IV Ancef and 1 g tranexamic acid was administered within 1 hr of incision preoperatively. Appropriate time-out was performed identifying proper patient, site, and procedure. The operative extremity was prepped and draped in the appropriate sterile fashion using ChloraPrep after the patient was positioned in the lazy beach chair position with head in neutral alignment and all bony prominences well padded. A longitudinal incision was made for deltopectoral approach. Deltoid was retracted laterally. Cephalic vein was identified and retracted laterally as well. Vein was spared/protected throughout the case. The clavipectoral fascia was identified and divided longitudinally staying lateral to the conjoined tendon / coracoid. The conjoined tendon was protected with a blunt Hohmann. The long head of the biceps tendon was identified and the bicipital sheath released. The upper 1/4 of the pectoralis major was also released from its insertion. The long head of the biceps was tenodesed to the pectoralis major tendon. The remaining proximal tendon tissue was excised. The rotator cuff was inspected and found to have good integrity with the subscapularis but fair integrity with a supraspinatus], and a decision for a reverse shoulder arthroplasty was confirmed. The long head of biceps, of note, was significant flattened, thickened, with abundant tenosynovitis. A subscapularis cuff of tissue was left via tenotomy for later repair with the remaining subscapularis released in a subperiosteal fashion with the Bovie. This was tagged for later repair. The 3 sisters were cauterized. The upper subscapularis was released from the capsule with a curved Bullock scissors towards the glenoid. The inferior subscapularis was divided from the capsular tissue on its caudal surface with particular caution for the axillary nerve. This was palpated anterior to the subscapularis both prior to and near the finish of the case. Inferior humeral head osteophytes were excised with caution taken throughout the case with regards to the axillary nerve. The humerus was disloc ated, and humeral head cut completed. Then a protector plate was applied. We turned our attention to the glenoid. The humerus was retracted posteriorly. The subscap was protected anteriorly and the labrum/long head biceps origin was excised circumferentially. The capsule was released along the anterior and inferior portions of the glenoid cautiously with a Zepeda elevator being careful not to penetrate deep. The glenoid had appropriate exposure, and was prepared with the cannulated system with a target of approximately 5-10? of inferior tilt and neutral anteversion (patient had 15 ? of retroversion initially). Utilizing the match Point 3D printed guide, the guide pin was placed. The 3D printed jig removed and after placing the guide pin, the tap was placed followed by the glenoid reaming. The real base plate was opened, and inserted, and excellent compression/purchase was achieved with the central screw. Peripheral screws were then drilled, measured, and placed. The glenosphere was then placed consistent with the preoperative plan utilizing the above noted glenosphere. After securing the glenosphere with the locking, torque limited screw, attention was turned back to the humerus. A canal finder was placed followed by various reamers by hand. The real humeral stem was then opened and inserted with excellent metaphyseal fit and stability. Trial poly was placed and the shoulder reduced. Excellent reduction and stability achieved with appropriate tension on the conjoined tendon. At this stage, trial implants were removed, and the real implants inserted and the s houlder reduced. A 3 minute Betadine soak was performed followed by a thorough irrigation with normal saline. Subscapularis was repaired with #1 PDS (x4-5) to the cuff of tissue on the lesser tuberosity. Excellent reapproximation of tissue achieved. Hemostasis was found to be appropriate. The deltopectoral interval was reapproximated with 0 Vicryl, subcutaneous and subcuticular closure was then performed with number 2-0 Vicryl and 4-0 Monocryl, respectively. A skilled ssn/ssbn assistant navigator was critical for this case to aid in patient positioning, tissue retraction, limb manipulation/positioning, retraction for glenoid exposure, which was challenging, awareness and protection of critical structures, and closure. PLAN: 1. Sling much of the time for the operative upper extremity. 2. AROM of elbow, forearm, wrist, and digits as tolerated. 3. PT/OT consults for education and assistance. 4. Social consult for discharge planning. 5. 23 hr perioperative antibiotics. 6. Early ambulation, and SCDs for DVT prophylaxis. 7. Admit to the hospital for the above 8. Analgesics p.r.n. 9. Pendulums like an elephant trunk p.r.n.
--- NOTE | 2025-05-06 09:57 | CRLHL7_ITS ---
For Patients: As a result of the Century Cures Act, medical imaging exams and procedure reports are released immediately into your electronic medical record. You may view this report before your referring provider. If you have questions, please contact your health care provider. INDICATION : Right shoulder arthroplasty TECHNIQUE : 2View right shoulder FINDINGS : A reverse arthroplasty is present with intact components. Alignment is anatomic. No significant bony abnormalities are identified. IMPRESSION : Satisfactory radiographic appearance reverse right shoulder arthroplasty Dictated by Lázaro Parkinson MD @ 05/06/2025 11:47:12 AM (Electronically Signed)
--- NOTE | 2025-05-06 10:03 | P.ANES_ITS ---
Anesthesia Charges Start Date/Time Anesthesia Start Date: 05/06/25 Anesthesia Start Time: 07:18 Stop Date/Time Anesthesia Stop Date: 05/06/25 Anesthesia Stop Time: 09:57 Summary Extremes of Age - Over 70 or under 1: ELECTRONICS INSPECTOR Coding CPT Codes CPT Codes: ANESTH SHOULDER REPLACEMENT - 06973 ([id number]) P2 - PATIENT W/MILD SYST DISEASE, QK - TUMBLER PLATER 2-4 CNCRNT ANES PROC, QX - ELECTRONICS INSPECTOR SVC W/ MD MED DIRECTION Additional Codes: Summary - Extremes of Age - Over 70 or under 1: ELECTRONICS INSPECTOR ([id number])
--- NOTE | 2025-05-06 10:03 | W.ANESCHARGE ---
Anesthesia Charges Start Date/Time Anesthesia Start Date: 05/06/25 Anesthesia Start Time: 07:18 Stop Date/Time Anesthesia Stop Date: 05/06/25 Anesthesia Stop Time: 09:57 Summary Extremes of Age - Over 70 or under 1: INTERNET SECURITY SPECIALIST Coding CPT Codes CPT Codes: ANESTH SHOULDER REPLACEMENT - 77494 ([id number]) P2 - PATIENT W/MILD SYST DISEASE, QK - POULTRY INSPECTOR 2-4 CNCRNT ANES PROC, QX - INTERNET SECURITY SPECIALIST SVC W/ MD MED DIRECTION Additional Codes: Summary - Extremes of Age - Over 70 or under 1: INTERNET SECURITY SPECIALIST ([id number])
[2025-05-06] MEDS: ONDANSETRON 2 MG/ML inj 4 MG IVP (14:40)
== END 2025-05-06 14:42 | disposition home or self-care (01) ==
LOC: OR 06:08
PROVIDERS: PCP Family Medicine; Visit Provider Orthopaedic Surgery Sports Medicine
PROC: 0RRJ0JZ Replacement of Right Shoulder Joint with Synthetic Substitute, Open Approach (ICD-10-PCS; CPT 23472; principal; 2025-05-06 07:30)
DX: M19.011 Primary osteoarthritis, right shoulder (principal); M75.21 Bicipital tendinitis, right shoulder; G89.18 Other acute postprocedural pain
CPT/HCPCS: 23472; 23430; 01638; 64415; 73030; 76942; 97110; 97165; 97535; 99100; A9270; C1713; C1776; J0690; J1100; J2250; J2371; J2405; J2704; J2795; J3010; J3490; J7120; L3670